=== PATIENT | male | born 1960 | race Caucasian/White ===

== ENCOUNTER 2018-09-24 22:29 | Observation (INO) | payer OTHER ==
--- NOTE | 2018-09-24 22:49 | EDPHY ---
H & P Stated Complaint: CHEST PAIN FOR LAST 30 MIN WHILE AT WORK. 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 He was up stairs approximately 2 hr ago developed rather severe sharp stabbing right-sided chest pain. Describes located in the right lower chest mainly in his right upper quadrant. The pain does not radiate anywhere he has no shoulder pain. It is worse when he breathes in. Also noted on exam when you press in his right upper quadrant gives him severe pain. This happened rather intermittently but now has become constant. He has had nausea but no vomiting. He denies any left -sided chest pain chest pressure neck pain jaw pain back pain. Pain is located right upper quadrant sharp stabbing. He denies any history of cardiovascular disease, nor does he endorse any history of gallstones or gallbladder disease. 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 Denies daily use of drugs alcohol tobacco. Does not take any daily medications. Family History: Noncontributory ROS REVIEW OF SYSTEMS: 10 Systems were reviewed and negative with the exception of the elements mentioned in the history of present illness. Exam Constitutional triage nursing summary reviewed, vital signs reviewed, awake/ alert. Eyes normal conjunctivae and sclera, EOMI, PERRLA. HENT normal inspection, atraumatic, moist mucus membranes, no epistaxis, neck supple/ no meningismus, no raccoon eyes. Respiratory clear to auscultation bilaterally, normal breath sounds, no respiratory distress, no wheezing. Cardiovascular rate normal, regular rhythm, no murmur, no edema, distal pulses normal. Gastrointestinal mild tender palpation right upper quadrant, no rebound, no guarding, normal bowel sounds, no distension, no pulsatile mass. Genitourinary no CVA tenderness. Musculoskeletal no midline vertebral tenderness, full range of motion, no calf swelling, no tenderness of extremities, no meningismus, good pulses, neurovascularly intact. Skin pink, warm, & dry, no rash, skin atraumatic. Neurologic awake, alert and oriented x 3, AAOx3, moves all 4 extremities equally, motor intact, sensory intact, CN II-XII intact, normal cerebellar, normal vision, normal speech. Psychiatric normal mood/affect. Heme/Lymph/Immune no lymphadenopathy. Differential Diagnosis: Differential diagnosis includes but is not limited to and in no particular order: Bowel obstruction, appendicitis, gallbladder disease, diverticulitis, colitis, enteritis, perforated viscus, gastritis, GERD , esophagitis, urinary tract infection, pyelonephritis, kidney stones Differential diagnosis includes but is not limited to: ACS, atypical chest pain , pneumothorax, pneumonia, pulmonary embolism, aortic dissection, congestive heart failure, tumor, musculoskeletal pain, esophageal pain, GERD, peptic ulcer disease, pancreatitis Medical Decision Making: Plan for this patient IV establishment, IV fluid bolus , IV Dilaudid 0.5 mg for pain control, IV Zofran 4 mg for nausea, ultrasound right upper quadrant, basic labs re-evaluate. Re-evaluation: EKG interpretation by me on record in [facility] system. Impression time of EKG 2230, sinus tach 120 without any signs of acute ischemia. No ST elevation. Ultrasound of the repeat a contrast shows findings in liver compatible with fatty change. No gallstones are seen in visualize aspects of the gallbladder No gallbladder wall thickening or pericholecystic fluid Pancreas is partially obscured by overlying bowel gas. To the patient's elevated D-dimer no evidence of acute cholecystitis I will proceed with CT scan chest abdomen pelvis. Rule out PE and other acute abdominal pathology. CT scan angiogram of the chest And CT scan abdomen pelvis with IV contrast faxed me by direct Radiology 2:03 a.m., This shows age indeterminate buckle fracture of the right 7th and 8th ribs Shows no pulmonary embolus Fluid-filled loops of small caliber small and large bowel that could be normal for the patient or could represent enterocolitis Infection or inflammatory etiology. Mild inflammatory airway disease Patient re-evaluated 2:09 a.m: Patient re-evaluated this time resting comfortably no acute distress. On re- examination he has reproducible right lateral chest wall pain. This consistent with the CT scan shows a buckle fracture 7th and 8th rib. He reports to me no trauma tonight however reports that he fell last week and then even think about mentioning it. He states took some ibuprofen for few days and no longerin in till tonight. EKG interpretation by me on record in [facility] system. Impression time of EKG 2:18 a.m., sinus rhythm rate of 83, no signs of acute ischemia. Plan for hospital admission for right-sided pain control. IV Toradol and IV Ativan ordered Spoke with the hospitalist service Dr. Raymundo agrees to admit. Source: Patient - Personal History Current Tetanus/Diphtheria Vaccine: Yes Current Tetanus Diphtheria and Acellular Pertussis (TDAP): Yes - Medical/Surgical History Hx Asthma: No Hx Chronic Respiratory Disease: No Hx Diabetes: No Hx Cardiac Disease: No Hx Renal Disease: No Hx Cirrhosis: No Hx Alcoholism: No Hx HIV/AIDS: No Hx Splenectomy or Spleen Trauma: No Other PMH: CHILDHOOD STUFF - Social History Smoking Status: Never smoked Constitutional: Initial Vital Signs Temperature (C) 36.9 C 09/24/18 22:30 Heart Rate 122 H 09/24/18 22:30 Respiratory Rate 18 09/24/18 22:30 Blood Pressure 122/94 H 09/24/18 22:30 O2 Sat (%) 91 L 09/24/18 22:30 O2 Delivery Mode Room Air O2 (L/minute) 2 Allergies/Adverse Reactions: No Known Allergies Allergy (Verified 09/25/18 07:39) Home Medications: Medication Instructions Recorded Acetaminophen [Tylenol 325mg (*)] 325 mg PO Q6 PRN 09/25/18 Ibuprofen [Motrin Ib] 200 - 400 mg PO Q6 #30 tablet 09/25/18 Multivitamins [Multivitamin (*)] 1 each PO DAILY 09/25/18 Hague-3 Fatty Acids [Fish Oil 1000 1,000 mg PO DAILY 09/25/18 mg (*)] Medical Decision Making - Data Points Laboratory Results: Laboratory Results 09/24/18 22:30 09/24/18 22:30 Medications Given: Discontinued Medications Hydromorphone HCl (Dilaudid) 0.5 mg IVP EDNOW ONE Stop: 09/24/18 22:58 Last Admin: 09/24/18 23:52 Dose: 0.5 mg Sodium Chloride (Ns) 1,000 mls @ 0 mls/hr IV EDNOW ONE; Wide Open PRN Reason: Protocol Stop: 09/24/18 22:58 Last Admin: 09/24/18 23:14 Dose: 1,000 mls Sodium Chloride (Ns) 1,000 mls @ 0 mls/hr IV ONCE ONE PRN Reason: Wide Open Stop: 09/25/18 00:23 Last Admin: 09/25/18 00:25 Dose: 1,000 mls Ketorolac Tromethamine (Toradol) 15 mg IVP EDNOW ONE Stop: 09/25/18 02:24 Last Admin: 09/25/18 02:34 Dose: 15 mg Ketorolac Tromethamine (Toradol) 15 mg IVP Q6HRS GERALD Stop: 09/30/18 07:59 Last Admin: 09/25/18 07:39 Dose: 15 mg Lorazepam (Ativan Injection) 0.5 mg IVP EDNOW ONE Stop: 09/25/18 02:23 Last Admin: 09/25/18 02:32 Dose: 0.5 mg Miscellaneous Medication (Icy Hot Lidocaine/Menthol 4%/1% Patch) 1 patch TD DAILY GERALD Stop: 03/24/19 08:59 Last Admin: 09/25/18 07:40 Dose: 1 patch Ondansetron HCl (Zofran) 4 mg IVP EDNOW ONE Stop: 09/24/18 22:58 Last Admin: 09/24/18 23:15 Dose: Not Given Point of Care Test Results: Chemistry 09/25/18 09/24/18 02:12 22:36 POC Troponin I 0.00 ng/mL ng/mL 0.01 ng/mL ng/mL (0.00-0.08) (0.00-0.08) Departure - Departure Disposition: [facility] Inpatient Acute Clinical Impression: Rib pain on right side Rib fractures Qualifiers: Encounter type: initial encounter Fracture type: closed Laterality: right Condition: Fair
[2018-09-24] MEDS ORDERED: ONDANSETRON 4 MG/2 ML VIAL IVP ONE (22:57)
[2018-09-24] MEDS ORDERED: NS 1,000 ML IV ONE (22:57)
[2018-09-24] MEDS ORDERED: HYDROmorphONE/DILAUDID 1 MG/ML INJ ONE ×2 (23:01→23:49)
[2018-09-24 23:05] LABS: PLATELET COUNT 382 10^3/uL (150-400)
[2018-09-24 23:14] LABS: INR 1.03 (0.83-1.16); PROTIME(PATIENT) 13.1 SEC (12.0-15.0)
[2018-09-24] MEDS: HYDROmorphONE/DILAUDID 2 MG/ML INJ IVP ONE ×2 (23:15→23:52)
[2018-09-25] MEDS ORDERED: NS 1,000 ML IV ONE (00:22)
[2018-09-25] MEDS ORDERED: IOPAMIDOL (ISOVUE 370) 100 ML BTL IV ONE (00:40)
[2018-09-25] MEDS ORDERED: LORazepam 2 MG/ML INJ IVP ONE (02:22)
[2018-09-25] MEDS ORDERED: KETOROLAC 15 MG/1 ML SDV IVP ONE (02:23)
[2018-09-25] MEDS ORDERED: LORazepam 0.5 MG TAB PO PRN (02:40)
[2018-09-25] MEDS ORDERED: HYDROCODONE/APAP 5/325 TAB PO PRN (02:40)
[2018-09-25] MEDS ORDERED: ONDANSETRON 4 MG/2 ML VIAL IVP PRN (02:40)
[2018-09-25] MEDS ORDERED: ACETAMINOPHEN 325 MG TAB PO PRN (02:40)
[2018-09-25] MEDS ORDERED: ONDANSETRON DISINTEGRATING 4 MG TAB PO PRN (02:40)
--- NOTE | 2018-09-25 04:50 | PDGENHP ---
History and Physical - Chief Complaint Right lower chest pain, right upper quadrant abdominal pain - History of Present Illness Source-patient provides history appears reliable. He is an RN on the med surge floor. EMR was reviewed and case discussed with ED provider. HPI-this is a pleasant 57-year-old gentleman with no significant past medical history who presents emergency department today while working on the [employer] floor with complaints of sudden onset right-sided upper abdominal lower chest pain. Patient reports that he develops is sudden shortness of breath and severe pain. He became diaphoretic and appeared unwell. He came downstairs to the emergency department for evaluation. He denies any associated nausea or vomiting. Patient notes that approximately 5 days ago he sustained a mechanical fall while reaching into his car. Patient notes however that he does not recall injuring his chest wall. He does admit that he fell trying to lean into the car hitting the right upper quadrant and possibly edge of the lowest rib but does not recall any other injuries. He notes that he had some soreness in this area for several days but this improved with 2 days of ibuprofen. He denies any radiating pain. He was feeling well up until this evening's shift. Patient denies any fevers or chills. Patient does note that it beginning shift will get report he had a little bit of sneezing. Denies any coughing. History Information - Allergies/Home Medication List Allergies/Adverse Reactions: No Known Allergies Allergy (Unverified 09/24/18 22:32) Home Medications: Multivitamin [One Daily] 1 each PO 09/24/18 [Last Taken Unknown] I have personally reviewed and updated: family history, medical history, social history, surgical history - Past Medical History no pertinent PMH (Patient denies) Additional medical history: He does note a remote history of traumatic rib fracture on the right. - Surgical History Additional surgical history: Tympanostomy tubes, appendectomy, tonsillectomy adenoidectomy. - Family History Additional family history: Negative for osteoporosis or bone disorders. 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 He is a served in [employer]. COR - FULL. Review of Systems Review of Systems: ROS: 10pt was reviewed & negative except for what was stated in HPI & below Physical Exam Physical Exam: Selected Entries 09/24/18 22:30 Blood Pressure Automatic Method Heart Rate 122 H Respiratory 18 Rate O2 Sat (%) 91 L Temperature (C) 36.9 C Blood Pressure 122/94 H Mean Arterial 103 H Pressure (MAP) O2 Delivery Room Air Mode Temperature Oral Source Temp Pulse Resp BP Pulse Ox 36.6 C 78 16 118/77 95 09/25/18 03:38 09/25/18 03:38 09/25/18 03:38 09/25/18 03:38 09/25/18 03:38 Constitutional: no apparent distress, uncomfortable, other (NAD. Pleasant adult gentleman is lying quietly in bed. Does appear uncomfortable with movement.) Eyes: PERRL (Slightly decreased reactivity light bilaterally but symmetric.), anicteric sclera, EOMI (Grossly intact), pale conjunctiva, No scleral injection Ears, Nose, Mouth, Throat: dry mucous membranes, other (No nasal discharge) Cardiovascular: regular rate and rhythym, no murmur, rub, or gallop, pulses symmetric bilaterally, No edema Peripheral Pulses: 2+: dorsalis-pedis (R), dorsalis-pedis (L) Respiratory: no respiratory distress, no rales or rhonchi, clear to auscultation , No inspiratory crackles Gastrointestinal: normoactive bowel sounds, soft, non-tender abdomen, No tenderness, No guarding, No distension Genitourinary: no bladder tenderness, No palacios in urethra Skin: warm, normal color Musculoskeletal: full muscle strength, pain with ROM (Right chest), No generalized weakness Neurologic: AAOx3, sensation intact bilaterally, other (Grossly nonfocal), No facial droop Psychiatric: interacting appropriately, not encephalopathic, thought process linear Lab Data & Imaging Review 09/24/18 22:30 09/24/18 22:30 WBC 11.36 10^3/uL (3.80-9.50) H 09/24/18 22:30 RBC 5.64 10^6/uL (4.40-6.38) 09/24/18 22:30 Hgb 15.8 g/dL (13.7-17.5) 09/24/18 22:30 Hct 46.8 % (40.0-51.0) 09/24/18 22:30 MCV 83.0 fL (81.5-99.8) 09/24/18 22:30 MCH 28.0 pg (27.9-34.1) 09/24/18: MCHC 33.8 g/dL (32.4-36.7) 09/24/18: RDW 12.6 % (11.5-15.2) 09/24/18:30 Plt Count 382 10^3/uL (150-400) 09/24/18: MPV 9.3 fL (8.7-11.7) 09/24/18:30 Neut % (Auto) 67.6 % (39.3-74.2) 09/24/18 22: Lymph % (Auto) 25.4 % (15.0-45.0) 09/24/18: [place] % (Auto) 5.3 % (4.5-13.0) 09/24/18: Eos % (Auto) 0.6 % (0.6-7.6) 09/24/18: Baso % (Auto) 0.6 % (0.3-1.7) 09/24/18: Nucleat RBC Rel Count 0.0 % (0.0-0.2) 09/24/18: Absolute Neuts (auto) 7.67 10^3/uL (1.70-6.50) H 09/24/18:30 Absolute Lymphs (auto) 2.89 10^3/uL (1.00-3.00) 09/24/18:30 Absolute Monos (auto) 0.60 10^3/uL (0.30-0.80) 09/24/18 22:30 Absolute Eos (auto) 0.07 10^3/uL (0.03-0.40) 09/24/18: Absolute Basos (auto) 0.07 10^3/uL (0.02-0.10) 09/24/18: Absolute Nucleated RBC 0.00 10^3/uL (0-0.01) 09/24/18: Immature Gran % 0.5 % (0.0-1.1) 09/24/18: Immature Gran # 0.06 10^3/uL (0.00-0.10) 09/24/18 22:30 PT 13.1 SEC (12.0-15.0) 09/24/18 22:30 INR 1.03 (0.83-1.16) 09/24/18 22:30 APTT 33.2 SEC (23.0-38.0) 09/24/18 22:30 D-Dimer 0.55 ug/mLFEU (0.00-0.50) H 09/24/18 22:30 VBG Lactic Acid 1.1 mmol/L (0.7-2.1) 09/24/18 23:05 Sodium 140 mEq/L (135-145) 09/24/18 22:30 Potassium 4.1 mEq/L (3.5-5.2) 09/24/18 22:30 Chloride 106 mEq/L (97-110) 09/24/18 22:30 Carbon Dioxide 22 mEq/l (22-31) 09/24/18 22:30 Anion Gap 12 mEq/L (6-14) 09/24/18 22:30 BUN 14 mg/dL (7-23) 09/24/18 22:30 Creatinine 1.0 mg/dL (0.7-1.3) 09/24/18 22:30 Estimated GFR > 60 09/24/18 22:30 Glucose 96 mg/dL (70-100) 09/24/18 22:30 Calcium 9.7 mg/dL (8.5-10.4) 09/24/18 22:30 Total Bilirubin 0.5 mg/dL (0.1-1.4) 09/24/18 22:30 Conjugated Bilirubin 0.4 mg/dL (0.0-0.5) 09/24/18 22:30 Unconjugated Bilirubin 0.1 mg/dL (0.0-1.1) 09/24/18 22:30 AST 20 IU/L (17-59) 09/24/18 22:30 ALT 26 IU/L (21-72) 09/24/18 22:30 Alkaline Phosphatase 90 IU/L (38-126) 09/24/18 22:30 POC Troponin I 0.00 ng/mL (0.00-0.08) 09/25/18 02:12 Total Protein 7.5 g/dL (6.3-8.2) 09/24/18 22:30 Albumin 4.4 g/dL (3.5-5.0) 09/24/18 22:30 Lipase 82 IU/L (23-300) 09/24/18 22:30 Imaging Review: CXR - reviewed image myself. report pending. no acute cardiopulmonary processes. RUQ US - image pre-liminary report reviewed - no gallstones. no wall thickening or pericholecystic fluid. pancreas no well visualized. fatty liver changes. CT abd/pelvis w/CTA chest - buckle fx R 7th and 8th ribs. no PE. fluid filled loops with normal caliber small and large bowel which could be normal. mild inflammatory airway disease. Visualized and Interpreted Chest x-ray results: Yes Visualized and Interpreted imaging results: Yes Visualized and Interpreted EKG results: Yes EKG additional interpertation: sinus rhythm 80s. no acute ST elevations. III twave inversion. anterolateral leads <0.5mm ST depression overall normal ekg no comparison available. QTc 437. Assessment & Plan Assessment: 57 yo M with no significant PMHx reporting fall 5 days ago now with c/o right lower chest/RUQ pain and SOB. #Rib fractures (Acute) - supportive care. incentive spirometry. #Rib pain on right side (Acute) - prn medications. toradol seems to help significantly continue. lidoderm patch, kpad prn. #SOB - improved with pain control #tachycardia - sinus tachy likely 2/2 pain/stress. now normal. trop neg x 2. FEN - s/p IVF in ED. patient tolerating PO encourage oral hydration. electrolytes adequate replacement prn. diet regular as tolerated. PPX - SCDs. encourage mobilization. anticipate short hospital stay. COR - FULL. Dispo - Patient admitted for observation overnight rest of the night and for pain control.
[2018-09-25 08:00] VITALS: BP 114/74
[2018-09-25] MEDS ORDERED: KETOROLAC 15 MG/1 ML SDV IVP SCH (08:00)
[2018-09-25] MEDS ORDERED: LIDOCAINE 4%/MENTHOL 1% PATCH TD SCH (09:00)
--- NOTE | 2018-09-25 10:17 | GDS ---
[f rep st] DISCHARGE SUMMARY FINAL DIAGNOSES: 1. Acute right-sided rib pain. 2. Right-sided anterolateral 7th and 8th rib fractures. 3. Tachycardia. 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 He initially treated this with ibuprofen. When he was working last nigh t he developed severe right-sided chest pain that did not britney. Imaging in the ED included abdomina l ultrasound, abdominal CT scan as well as chest and thorax CT angiogram. This was most notable for rib fractures in the 7th and 8th rib. Is treated with pain control with significant improvement in h is symptoms. Currently, he is tolerating his pain without narcotics and does not request any narcoti cs on discharge. Recommend that he continue using his incentive spirometer. He may bind his chest i n an Antonio bandage if this helps. I recommended that he does not return to work for at least a week. He is comfortable with this plan and anxious to be discharged. DISPOSITION: Discharged home in stable condition. /[id number]/MODL
[2018-09-25] MEDS ORDERED: PATCH REMOVAL 1 EA PATCH TD SCH (21:00)
--- NOTE | 2018-09-28 08:12 | CPEKG ---
Test Reason : OPEN Blood Pressure : / mmHG Vent. Rate : 083 BPM Atrial Rate : 082 BPM P-R Int : 166 ms QRS Dur : 096 ms QT Int : 372 ms P-R-T Axes : 058 -04 011 degrees QTc Int : 437 ms Sinus rhythm Confirmed by Ronal Rodriguez ([id number]) on 09/28/2018 8:12:04 AM Referred By: Ronal Rodriguez Confirmed By:Ronal Rodriguez
== END 2018-09-25 10:04 | disposition home or self-care (01) ==
LOC: F3E 09-25 03:16
PROVIDERS: ADMIT Family Medicine; ATTEND Student in an Organized Health Care Education/Training Program
DX: R07.81 Pleurodynia (principal); S22.41XA Multiple fractures of ribs, right side, initial encounter for closed fracture; W19.XXXA Unspecified fall, initial encounter; Y92.9 Unspecified place or not applicable; Y93.9 Activity, unspecified
CPT/HCPCS: 71045; 71275; 74177; 76705; 93005; 96361; 96374; 96375; 96376; 99285; G0378; 84484-ER; J1170; J1885; J2060; J2405; Q9967